=== PATIENT | male | born 1990 | race Caucasian/White ===

== ENCOUNTER 2016-09-05 02:30 | Emergency (ER) | payer MEDICAID | END 2016-09-05 03:39 | disposition home or self-care (01) | LOC: D.ER 02:30 | DX: S63.501A Unspecified sprain of right wrist, initial encounter (principal); W19.XXXA Unspecified fall, initial encounter ==

== ENCOUNTER 2017-08-14 19:08 | Emergency (ER) | payer MEDICAID ==
[2017-08-14 21:10] LABS: BASOPHILS 0.1 % (0-2); EOSINOPHILS 0 % (0-7); IMMATURE GRANULOCYTES 0.2 % (0-5); LYMPHOCYTES 4.7 % (15-50); MCH 29.6 pg (26.0-34.0); MCHC 35.1 g/dL (31.0-37.0); MCV 84.3 fL (80.0-100.0); MEAN PLATELET VOLUME 9.2 fL (7.4-10.4); MONOCYTES 3.4 % (2-11); NEUTROPHILS 91.6 % (40-80); RBC 4.39 10x6/uL (4.20-6.10); RDW 12.2 % (11.5-14.5); WBC 15.6 10x3/uL (4.8-10.8)
[2017-08-14 21:11] LABS: PLATELET COUNT 207 10x3/uL (130-400)
[2017-08-14 21:26] LABS: ALBUMIN 3.2 g/dL (3.4-5.0); ALKALINE PHOSPHATASE 73 U/L (46-116); ALT (SGPT) 20 U/L (10-68); CALC OSMOLALITY 272 mosm/kg (275-300); CALCIUM 7.7 mg/dL (8.5-10.1); CARBON DIOXIDE 29.4 mmol/L (21.0-32.0); CHLORIDE - SERUM 101 mmol/L (98-107); CREATININE - SERUM 0.9 mg/dL (0.6-1.3); GLUCOSE 130 mg/dL (74-106); POTASSIUM - SERUM 3.2 mmol/L (3.5-5.1); PROTEIN - SERUM 6.7 g/dL (6.4-8.2); SODIUM 136 mmol/L (136-145); UREA NITROGEN 9 mg/dL (7-18); eGFR NON AFRICAN AMERICAN > 90 mL/min (90-120)
[2017-08-15 00:04] LABS: APPEARANCE CLEAR (CLEAR); BILIRUBIN NEGATIVE (NEGATIVE); COLOR YELLOW (YELLOW); GLUCOSE NEGATIVE (NEGATIVE); KETONE NEGATIVE (NEGATIVE); NITRITE NEGATIVE (NEGATIVE); PROTEIN NEGATIVE (NEGATIVE); SPECIFIC GRAVITY 1.015 (1.005-1.020); UROBILINOGEN NORMAL (NORMAL)
== END 2017-08-15 00:39 | disposition home or self-care (01) ==
LOC: D.ER 19:08
PROVIDERS: Physician Assistant Medical
DX: E86.0 Dehydration (principal); E87.6 Hypokalemia; G80.9 Cerebral palsy, unspecified

== ENCOUNTER 2017-09-12 12:53 | Emergency (ER) | payer MEDICAID ==
[~2017-09-12] VITALS: Ht 167.6 cm; Wt 63.6 kg
[2017-09-12 13:05] VITALS: Ht 167.6 cm; Wt 63.6 kg
[2017-09-12] MEDS ORDERED: TEGRETOL200 MG PO (13:10)
[2017-09-12] MEDS ORDERED: KEPPRA500 MG PO (13:10)
[2017-09-12] MEDS ORDERED: VOLTAREN75 MG PO (14:34)
[2017-09-12 14:46] VITALS: BP 130/89
== END 2017-09-12 14:48 | disposition home or self-care (01) ==
LOC: D.ER 12:53
DX: S93.401A Sprain of unspecified ligament of right ankle, initial encounter (principal); W19.XXXA Unspecified fall, initial encounter; Y93.89 Activity, other specified; Y92.019 Unspecified place in single-family (private) house as the place of occurrence of the external cause; S89.91XA Unspecified injury of right lower leg, initial encounter; M25.571 Pain in right ankle and joints of right foot